=== PATIENT | female | born 1990 | race Caucasian/White ===

== ENCOUNTER 2021-10-20 17:15 | Emergency (ER) | payer BC, SELFPAY ==
--- NOTE | ~2021-10-20 | XR_ITS ---
EXAMINATION: XR chest 2V 10/20/2021 18:03 INDICATION: Shortness of breath for 3 days PROCEDURE: 2 view chest COMPARISON: No prior studies for comparison. FINDINGS: The lungs are clear. The cardiomediastinal silhouette is within normal limits. There are no pleural effusions. There is no pneumothorax suspected. IMPRESSION: 1: NO ACUTE CARDIOPULMONARY DISEASE. Reviewed, dictated and finalized at location A.
[2021-10-20 17:25] VITALS: BP 148/83; PULSE 78; RESP 20; TEMP 36.8; O2SAT 100
--- NOTE | 2021-10-20 17:27 | ED.URI ---
HPI - URI/Sore Throat General Stated Complaint: Shortness of Breath Time Seen by Provider: 10/20/21 17:42 Source: patient and RN notes reviewed Mode of arrival: ambulatory Limitations: no limitations History of Present Illness HPI Narrative: 31-year-old female presents with concern for shortness of breath. She reports 3-day history of feeling of having to catch her breath after mild activity such as walking down the [place]. She reports occasionally feeling the feeling after resting. She denies any chest pain, nasal congestion, rhinorrhea, fever, cough. She reports she does not take control, she has not taken control for more than a year. She denies any recent hospitalizations or airplane trips. Reports approximately 3 weeks ago she had a 4-hour car ride. MD elicited complaint: cough and other (Shortness of breath) Related Data Home Medications Medication Instructions Recorded Confirmed Vitamin 1 tablet PO DAILY 10/20/21 10/20/21 Allergies Allergy/AdvReac Type Severity Reaction Status Date / Time tree nuts Allergy Unknown unknown Uncoded 10/20/21 17:38 tree pollen Allergy Unknown unknown Uncoded 10/20/21 17:38 Review of Systems Review of Systems: CONSTITUTIONAL: Denies malaise, chills, sweats, or fever. EYES: Denies visual changes, redness, or discharge. ENT: Denies rhinorrhea, congestion, sinus pain, otalgia and sore throat. CARDIOVASCULAR: Denies chest pain, palpitations, or edema. RESPIRATORY: Denies cough. Reports dyspnea. GASTROINTESTINAL: Denies abdominal pain, nausea, vomiting, diarrhea SKIN: Denies rash or itching. MUSCULOSKELETAL: Denies myalgia. NEUROLOGIC: Denies headache. All systems reviewed & are unremarkable except as noted in HPI and below PMFSH Past Medical History Medical History Leaky heart valve Surgical History Surgical History [place] teeth extracted 2007 Family History Family History Father Diabetes mellitus Hypertension Mother Hypertension Grandparent Diabetes mellitus Hypertension Anxiety and depression Heart disease Grandparent Pancreatic cancer Social History Social History (Reviewed 07/26/21 @ 14:24 by Love Stanford [facility] Smoking status: Never smoker Alcohol intake: current Drinks per week: 4 Substance use: never Agree to blood products: Yes Comments At time of signature, agree with nursing past medical, surgical, social and family history. There is no relevant family history pertinent to the presenting complaint Exam Narrative: GENERAL: Well-appearing, well-nourished, and in no acute distress. HEAD: Normocephalic, atraumatic. EYES: PERRLA, sclera clear ENT: Nares clear. Mucous membranes moist. NECK: Supple. CHEST: No respiratory distress. Clear to auscultation. No bony deformities, no asymmetry. Speaks in full sentences. HEART: Regular rate and rhythm. No murmur heard. SKIN: Warm, dry, no visible rash. NEURO: Alert and oriented x3. PSYCH: Normal mood and affect Course Course Emergency Course: Discussed with patient limited diagnostic capability at [facility], discussed possible transfer to emergency department for further evaluation of patient's expressed concern of pulmonary embolism Patient agrees to proceed directly to the emergency department. Portions of this record may have been created with voice recognition software Level of Care: [facility] Visit Vital Signs Vital signs: Reviewed. Transfer Transfered to: [place] Transportation: Other Transfer rationale: Shortness of breath Accepting physician: Yessica Transfer comments: Patient stable for transfer via private vehicle MDM - URI/Sore Throat MDM Narrative Medical decision making narrative: Exam findings EKG, and imaging show no acute concerns or
--- NOTE | 2021-10-20 17:54 | ECG_ITS ---
Measurements Intervals [place] Rate: 71 P: 67 [place]: 152 QRS: 21 QRSD: 82 T: 44 QT: 388 QTc: 423 Interpretive Statements SINUS RHYTHM LOW QRS VOLTAGE IN PRECORDIAL LEADS BORDERLINE ECG Electronically Signed On 10-21-2021 6:03:09 CDT by Maxwell Cowan D.O.
[2021-10-20 18:30] VITALS: BP 140/90; PULSE 66; RESP 18; O2SAT 98
== END 2021-10-20 18:30 | disposition short-term general hospital (02) ==
PROVIDERS: Emergency Provider Nurse Practitioner
DX: R06.02 Shortness of breath (principal); Z20.822 Contact with and (suspected) exposure to COVID-19
CPT/HCPCS: 71046; 87426; 87804; 93005; 99213; C9803; G0463

== ENCOUNTER 2021-10-20 19:34 | Emergency (ER) | payer BC, SELFPAY ==
--- NOTE | ~2021-10-20 | XR_ITS ---
EXAMINATION: XR chest 2V 10/20/2021 20:14 INDICATION: Extreme shortness of breath. Chest tightness. PROCEDURE: 2 view chest COMPARISON: 10/20/2021 FINDINGS: The lungs are clear. The cardiomediastinal silhouette is within normal limits. There are no pleural effusions. There is no pneumothorax suspected. IMPRESSION: 1: NO ACUTE CARDIOPULMONARY DISEASE. Reviewed, dictated and finalized at location A.
[2021-10-20 19:36] VITALS: BP 153/106; PULSE 68; RESP 20; TEMP 36.2; O2SAT 100
--- NOTE | 2021-10-20 19:38 | ECG_ITS ---
Measurements Intervals [place] Rate: 65 P: 67 [place]: 153 QRS: 18 QRSD: 86 T: 50 QT: 399 QTc: 416 Interpretive Statements SINUS RHYTHM NORMAL ECG Electronically Signed On 10-21-2021 6:15:28 CDT by Maxwell Cowan D.O.
[2021-10-20 20:05] LABS: Basophils Absolute Auto 0.1 K/mm3 (0.0-0.1); Eosinophils Absolute Auto 0.1 K/mm3 (0-0.3); Eosinophils Percent Auto 1.5 % (0-4.4); Hemoglobin 15.7 g/dL (12.0-15.0); Immature Granulocyte Absolute 0.01 K/mm3 (0.00-0.031); Immature Granulocyte Percent A 0.1 % (0-0.5); Lymphocytes Absolute Auto 3.73 K/mm3 (0.9-3.2); Lymphocytes Percent Auto 44.5 % (18.3-44.2); Mean Corpuscular HGB Conc 33.4 g/dl (32-36); Mean Corpuscular Hemoglobin 29.8 pg (26-34); Mean Corpuscular Volume 89.4 fl (80-100); Mean Platelet Volume 9.5 fl (7.4-10.4); Monocytes Absolute Auto 0.5 K/mm3 (0.1-0.6); Monocytes Percent Auto 5.8 % (2.6-8.5); Neutrophils Percent Auto 47.1 % (45.5-73.1); Platelet Count Result 278 k/mm3 (150-375); Red Blood Count 5.26 M/mm3 (4.2-5.4); Red Cell Distribution Width 12.8 % (11.5-14.5); White Blood Count 8.4 K/mm3 (4.5-10.0)
[2021-10-20 20:14] LABS: Alanine Aminotransferase 22 U/L (6-35); Albumin Level 5.1 g/dL (3.5-5.1); Alkaline Phosphatase 80 U/L (38-126); Anion Gap 8 mmol/L (8-16); Aspartate Amino Transferase 33 U/L (14-36); Bilirubin,Total 0.4 mg/dL (0.2-1.3); Blood Urea Nitrogen 13 mg/dL (7-17); Calcium 9.3 mg/dL (8.4-10.2); Carbon Dioxide 27 mmol/L (22-30); Chloride 104 mmol/L (98-107); Estimated CRCL calculation 81 ml/min; Estimated Glomerular Filt Rate > 60; Glucose 100 mg/dL (65-110); Potassium 3.9 mmol/L (3.4-5.0); Sodium 139 mmol/L (137-145)
[2021-10-20 20:26] VITALS: O2SAT 98
--- NOTE | 2021-10-20 20:36 | ED.SOB ---
HPI - SOB/Dyspnea General Chief Complaint: Shortness of Breath/Dyspnea Stated Complaint: sob Time Seen by Provider: 10/20/21 20:21 History of Present Illness HPI Narrative: Patient is a 31-year-old female complaining of shortness of breath, worse when exertion and speaking, started 3 to 4 days ago. Patient denies any cough, chest congestion, chest pain, abdominal pain, nausea, vomiting, diaphoresis, fever or chills. Related Data Home Medications Medication Instructions Recorded Confirmed Vitamin 1 tablet PO DAILY 10/20/21 10/20/21 Allergies Allergy/AdvReac Type Severity Reaction Status Date / Time tree nuts Allergy Unknown unknown Uncoded 10/20/21 17:38 tree pollen Allergy Unknown unknown Uncoded 10/20/21 17:38 Review of Systems Review of Systems: All systems reviewed & are unremarkable except as noted in HPI and below Constitutional: Constitutional: Denies body ache(s), Denies chills, Denies excessive sweating, Denies fatigue, Denies fever(s), Denies headache(s), Denies lethargy, Denies malaise, Denies weakness and Denies weight loss Eyes: Eyes: Denies blurry vision, Denies change in vision and Denies loss of vision ENT: Denies dizziness, Denies ear discharge, Denies headache(s), Denies lip swelling, Denies epistaxis, Denies nasal congestion, Denies neck pain, Denies throat swelling and Denies tongue swelling Cardiovascular: Cardiovascular: Denies chest pain, Denies chest pain at rest, Denies chest pain with activity, Denies diaphoresis, Denies rapid heart rate, Denies edema, Denies irregular heart rhythm, Denies lightheadedness and Denies palpitations Respiratory: Respiratory: Denies chest congestion, Denies cough and Denies hemoptysis Gastrointestinal: Gastrointestinal: Denies abdominal pain, Denies melena, Denies hematochezia, Denies diarrhea, Denies nausea, Denies vomiting and Denies hematemesis Musculoskeletal: Musculoskeletal: Denies abnormal gait, Denies deformity, Denies joint swelling, Denies limited range of motion, Denies neck pain and Denies numbness Neurologic: Denies Abnormal speech present, Denies abnormal gait, Denies confusion, Denies dizziness, Denies headache(s), Denies focal weakness, Denies loss of vision, Denies numbness, Denies Other visual disturbances, Denies Sensory deficit (Neuro) and Denies weakness Psychiatric: Psychiatric: Denies confusion, Denies depression, Denies auditory hallucinations, Denies homicidal ideation and Denies suicidal ideation Endocrine: Endocrine: Denies cold intolerance, Denies excessive sweating, Denies fatigue, Denies heat intolerance and Denies palpitations Hematologic/Lymphatic: Hematologic/Lymphatic: Denies easy bleeding and Denies easy bruising Allergic/Immunologic: Allergic/Immunologic: Denies lip swelling, Denies throat swelling and Denies tongue swelling PMFSH Past Medical History Medical History Leaky heart valve Surgical History Surgical History [place] teeth extracted 2007 Family History Family History Father Diabetes mellitus Hypertension Mother Hypertension Grandparent Diabetes mellitus Hypertension Anxiety and depression Heart disease Grandparent Pancreatic cancer Social History Social History Smoking status: Never smoker Alcohol intake: current Drinks per week: 4 Substance use: never Agree to blood products: Yes Exam Const: General: cooperative, healthy appearing, comfortable, no acute distress, well developed, alert and awake; No confusion Orientation/consciousness: oriented to person, oriented to place, oriented to time, patient oriented x3 and No confusion Limitations: no limitations HENMT: Head: normal to inspection, normocephalic and atraumatic Ears: hearing grossly normal bilatera
[2021-10-20 20:43] LABS: D Dimer < 0.27 ug/mL (<0.48)
[2021-10-20 22:00] VITALS: BP 123/86; PULSE 77; RESP 18; O2SAT 98
== END 2021-10-20 22:01 | disposition home or self-care (01) ==
PROVIDERS: Emergency Medicine; Emergency Provider Emergency Medicine; PCP Family Medicine
DX: R06.02 Shortness of breath (principal); I38 Endocarditis, valve unspecified
CPT/HCPCS: 36415; 71046; 80053; 85025; 85380; 87426; 87804; 93005; 99283; C9803

== ENCOUNTER 2023-03-07 05:58 | Inpatient (IN) | payer BC, SELFPAY ==
[2023-03-07] VITALS (157 sets, daily range): BP systolic 98–177; BP diastolic 57–160; PULSE 62–225; RESP 18; TEMP 36.1–36.8; O2SAT 93–100; BMI 33.0
--- NOTE | 2023-03-07 06:26 | LDADM ---
This patient, Kamlesh Coley, was admitted to Labor/Delivery/Recovery 103 on 03/07/23 at 05:58. Plans for labor, pain management and were discussed with patient. Patient/family oriented to hospital policies and general routines including ID bracelet, bed and alarms, visiting hours, pain management, procedures, bathroom and other care routines, personal items, smoking policy, room service/diet and guest tray routines, infant security routines, and visiting hours. Patient/Family are encouraged to report perceived risks to care and to ask questions if they do not understand what they are told or what they should do. See OBIX for further documentation.
[2023-03-07 06:48] LABS: Glucose Point of Care 106 mg/dl (65-105)
[2023-03-07 06:50] LABS: Basophils Percent Auto 0.4 % (0.2-1.2); Eosinophils Absolute Auto 0.1 K/mm3 (0-0.3); Eosinophils Percent Auto 1.1 % (0-4.4); Hematocrit 35.6 % (37.0-47.0); Hemoglobin 11.9 g/dL (12.0-15.0); Immature Granulocyte Absolute 0.03 K/mm3 (0.00-0.031); Immature Granulocyte Percent A 0.4 % (0-0.5); Lymphocytes Absolute Auto 2.05 K/mm3 (0.9-3.2); Lymphocytes Percent Auto 24.1 % (18.3-44.2); Mean Corpuscular HGB Conc 33.4 g/dl (32-36); Mean Corpuscular Hemoglobin 29.9 pg (26-34); Mean Corpuscular Volume 89.4 fl (80-100); Mean Platelet Volume 10.1 fl (7.4-10.4); Monocytes Absolute Auto 0.6 K/mm3 (0.1-0.6); Monocytes Percent Auto 6.5 % (2.6-8.5); Neutrophils Absolute Auto 5.8 K/mm3 (1.3-6.7); Neutrophils Percent Auto 67.5 % (45.5-73.1); Platelet Count Result 206 k/mm3 (150-375); Red Blood Count 3.98 M/mm3 (4.2-5.4); Red Cell Distribution Width 13.5 % (11.5-14.5); White Blood Count 8.5 K/mm3 (4.5-10.0)
--- NOTE | 2023-03-07 07:37 | WPDOBADMIT ---
Obstetrics - Admit Note Admission Note: record reviewed. No pertinent additions to the history and/or any subsequent changes in the physical findings that are not consistent with the expected course of the were found. Admission for gestational HTN, GDMA-2, IOL, cervix /-1 plan cytotec Additions to the history and/or subsequent changes in the physical findings follow. None.
[2023-03-07] MEDS: miSOPROStol 25 MCG TABLET PO (07:49)
[2023-03-07 08:03] LABS: Total Protein Urine Random 20 mg/dL
[2023-03-07 08:08] LABS: Alanine Aminotransferase 18 U/L (6-35); Albumin Level 3.4 g/dL (3.5-5.1); Alkaline Phosphatase 208 U/L (38-126); Amorphous Sediment Urine Present; Anion Gap 7 mmol/L (8-16); Appearance Urine Cloudy (Clear); Aspartate Amino Transferase 27 U/L (14-36); Bacteria Urine None Seen /hpf; Bilirubin Urine Negative (Negative); Bilirubin,Total 0.4 mg/dL (0.2-1.3); Blood Urea Nitrogen 10 mg/dL (7-17); Blood Urine 1+ (Negative); Calcium 9.4 mg/dL (8.4-10.2); Carbon Dioxide 19 mmol/L (22-30); Chloride 108 mmol/L (98-107); Color Urine Yellow (Yellow); Estimated CRCL calculation 152 ml/min; Estimated Glomerular Filt Rate > 60; Glucose 105 mg/dL (65-110); Glucose Urine UA Negative (Negative); Ketones Urine 2+ mg/dL (Negative); Leukocyte Esterase Ur 1+ LEU/UL (NEGATIVE); Nitrate Urine Negative (Negative); Non Pathogenic Casts 0-2; Potassium 3.3 mmol/L (3.4-5.0); Protein Urine Negative (Negative); RBC Urine 0-2 /hpf (0-2); Sodium 134 mmol/L (137-145); Specific Grav Ur 1.011 (1.001-1.035); Squamous Epithelial Cell Urine None seen /hpf (Few); Uric Acid 4.2 mg/dL (2.5-7.5); Urobilinogen Urine 0.2 mg/dL (<2.0); WBC Urine 0-5 /hpf (0-3)
[2023-03-07 08:09] LABS: Add Urine Microscopic? YES
[2023-03-07 10:43] LABS: Rapid Plasma Reagin Non-Reactive (NonReactive)
[2023-03-07 10:45] LABS: Glucose Point of Care 134 mg/dl (65-105)
[2023-03-07] MEDS: miSOPROStol 25 MCG TABLET 50 MCG PO (12:18)
[2023-03-07 14:46] LABS: Glucose Point of Care 106 mg/dl (65-105)
[2023-03-07] MEDS: LACTATED RINGERS 1,000 ML 125 ML IV CONT ×2 (16:06→18:00)
[2023-03-07] MEDS: OXYTOCIN 30 UNITS/NS 500 ML 30 UNITS/500 ML BAG 6 UNITS IV CONT (16:07)
--- NOTE | 2023-03-07 16:21 | PM.OBPNLAB ---
Pain Control Date/time seen: 03/07/23 16:21 SVE 1-2 cm/80/-2 AROM small amount of clear, odorless fluid, anticipate vaginal delivery
[2023-03-07] MEDS: fentaNYL CITRATE INJ (*CRX) 100 MCG/2 ML VIAL 50 MCG IV PUSH (17:35)
--- NOTE | 2023-03-07 17:52 | WPDANESEPPF ---
Anes - Initial Pre Proc Eval Procedure: labor epidural Date/Time: 03/07/23 17:52 Surgeon: Kanchan Sweet MD Pre Op Diagnosis: labor pain Pre Op Diagnosis: iol Patient Data Age: 32 Gender: F Height: 1.65 m Weight: 90 kg Last Vital Signs Temp 36.2 C L 03/07/23 15:00 Pulse 103 H 03/07/23 17:50 Resp 18 03/07/23 08:00 BP 126/65 03/07/23 17:50 Pulse Ox 98 03/07/23 17:48 O2 Del Method Room Air 03/07/23 06:25 Allergies Allergy/AdvReac Type Severity Reaction Status Date / Time tree nuts Allergy Unknown unknown Uncoded 02/27/23 12:24 tree pollen Allergy Unknown unknown Uncoded 02/27/23 12:24 Home Medications Medication Instructions Recorded Confirmed Type Vitamin 1 tablet PO DAILY 10/20/21 02/27/23 History albuterol sulfate 90 mcg/actuation 2 puff inhalation QID PRN 10/20/21 02/27/23 Rx aerosol inhaler shortness of breath or wheezing #18 grams aspirin 81 mg chewable tablet 81 mg PO DAILY 02/27/23 02/27/23 History cetirizine 10 mg PO DAILY 02/27/23 02/27/23 History folic acid 400 mcg tablet 0.4 mg PO DAILY 02/27/23 02/27/23 History insulin NPH isoph U-100 human 100 30 unit subcut HS 02/27/23 02/27/23 History unit/mL subcutaneous cartridge Laboratory Tests 03/07/23 03/07/23 03/07/23 06:14 06:15 06:39 WBC 8.5 K/mm3 (4.5-10.0) RBC 3.98 L M/mm3 (4.2-5.4) Hgb 11.9 L D g/dL (12.0-15.0) Hct 35.6 L % (37.0-47.0) MCV 89.4 fl (80-100) MCH 29.9 pg (26-34) MCHC 33.4 g/dl (32-36) RDW 13.5 % (11.5-14.5) Plt Count 206 k/mm3 (150-375) MPV 10.1 fl (7.4-10.4) Immature Gran % (Auto) 0.4 % (0-0.5) Neut % (Auto) 67.5 % (45.5-73.1) Lymph % (Auto) 24.1 % (18.3-44.2) Mower % (Auto) 6.5 % (2.6-8.5) Eos % (Auto) 1.1 % (0-4.4) Baso % (Auto) 0.4 % (0.2-1.2) Lymph # (Auto) 2.05 K/mm3 (0.9-3.2) Mower # (Auto) 0.6 K/mm3 (0.1-0.6) Eos # (Auto) 0.1 K/mm3 (0-0.3) Baso # (Auto) 0.0 K/mm3 (0.0-0.1) Abs Immat Gran (auto) 0.03 K/mm3 (0.00-0.031) Absolute Neuts (auto) 5.8 K/mm3 (1.3-6.7) Absolute Nucleated RBC 0.0 K/mm3 (0.0-0.012) Nucleated RBC % 0.0 % (0.0-0.2) Sodium Potassium Chloride Carbon Dioxide Anion Gap BUN Creatinine Estim Creat Clear Calc Estimated GFR Glucose POC Capillary Glucose 106 H mg/dl (65-105) Uric Acid Calcium Total Bilirubin AST ALT Alkaline Phosphatase Total Protein Albumin Urine Color Urine Appearance Urine pH Ur Specific [place] Urine Protein Urine Glucose (UA) Urine Ketones Ur Blood (Man) Urine Nitrate Urine Bilirubin Urine Urobilinogen Ur Leukocyte Esterase Urine RBC Urine WBC Ur Squamous Epith Cells Amorphous Sediment Urine Bacteria Urine Casts U Random Total Protein Urine Creatinine Protein/Creat Ratio 2 RPR Non-reactive (NonReactive) Blood Type A Positive Antibody Screen Negative 03/07/23 03/07/23 03/07/23 07:44 10:42 14:43 WBC RBC Hgb Hct MCV MCH MCHC RDW Plt Count MPV Immature Gran % (Auto) Neut % (Auto) Lymph % (Auto) Mower % (Auto) Eos % (Auto) Baso % (Auto) Lymp
[2023-03-07 18:32] LABS: Glucose Point of Care 85 mg/dl (65-105)
[2023-03-07 22:24] LABS: Glucose Point of Care 82 mg/dl (65-105)
[2023-03-08] VITALS (143 sets, daily range): BP systolic 101–199; BP diastolic 48–177; PULSE 72–163; RESP 16; TEMP 36.6–37.1; O2SAT 90–100
[2023-03-08 01:36] LABS: Glucose Point of Care 92 mg/dl (65-105)
[2023-03-08] MEDS: LACTATED RINGERS 1,000 ML 125 ML IV CONT (01:44)
[2023-03-08 02:18] LABS: Glucose Point of Care 102 mg/dl (65-105)
--- NOTE | 2023-03-08 04:56 | P.PCNOB_ITS ---
OB - Delivery Note Procedure Delivery date: 03/08/23 Procedure: Events: Gestational Diabetes (A-2) and Preeclampsia w/o severe features Induction method: AROM, Per Misoprostol Protocol and Per Pitocin Protocol Delivery monitor: External FHT and External Uterine Route of delivery: Episiotomy description: None Laceration Description: Perineal - 2nd Degree Delivery repair: vicryl Specimen: Yes Quantitative Blood Loss (ml): 800 Anesthesia type: Epidural Disposition: Floor [place] Baby Date of : 03/08/23 Time of : 04:27 Weeks of gestation at delivery: 38 Infant gender: Male presentation: vertex position: Left Occiput Anterior Placenta delivery description: Spontaneous Cord Vessel Description: 3 Vessels, Nuchal Cord (x1), Loose, Reduced, Clamped/Cut, Delayed Cord Clamping and Around Body (x1) score one minute: 8 score five minutes: 9 Narrative: mother and baby skin to skin, after delivery of placenta uterus did not firm with fundal massage, pitocin, then rectal cytotec with no resolution, STACEY placed and hemostasis achieved. stable condition
[2023-03-08] MEDS: LIDOCAINE HCL 1% LOCAL INJ 20 ML VIAL (06:18)
[2023-03-08] MEDS: miSOPROStol 200 MCG TABLET 1000 MCG (06:18)
[2023-03-08] MEDS: fentaNYL CITRATE INJ (*CRX) 100 MCG/2 ML VIAL IV PUSH (06:19)
--- NOTE | 2023-03-08 06:22 | PC.NURSE ---
Talked to Ermias Bardales at this time and she stated to give this patient 2g of Ancef
[2023-03-08] MEDS: BENZOCAINE 20% AER SPR (*SP) 56 GM CAN 1 SPRAY TOPICAL (06:54)
[2023-03-08] MEDS: IBUPROFEN 600 MG TABLET PO ×3 (06:54→18:22)
[2023-03-08] MEDS: WITCH HAZEL 40 PADS 1 PAD TOPICAL (06:54)
[2023-03-08] MEDS: ceFAZolin 2 GM/D5W 50 ML 2 GM/50 ML BAG IVPB (06:55)
--- NOTE | 2023-03-08 09:01 | OBPPTRN ---
0808-Patient transferred to post room #281 via wheelchair. Support person present. Oriented to unit, room, information board, rooming in, admission packet and security measures. Patient verbalizes understanding.
[2023-03-08] MEDS: DOCUSATE SODIUM 100 MG CAPSULE PO (12:18)
[2023-03-08] MEDS: MULTIVIT/MIN/PREN/FOL AC/IRON TABLET 1 TAB PO (12:21)
--- NOTE | 2023-03-08 13:50 | PC.NURSE ---
1245- present to D/C Sue. RN assisted; pt tolerated well.
[2023-03-08 13:55] LABS: Hematocrit 31.2 % (37.0-47.0); Hemoglobin 10.3 g/dL (12.0-15.0); Mean Corpuscular Hemoglobin 29.9 pg (26-34); Mean Corpuscular Volume 90.7 fl (80-100); Mean Platelet Volume 9.7 fl (7.4-10.4); Platelet Count Result 184 k/mm3 (150-375); Red Blood Count 3.44 M/mm3 (4.2-5.4); Red Cell Distribution Width 13.8 % (11.5-14.5)
--- NOTE | 2023-03-08 15:56 | PC.NURSE ---
[id number] Introductions were made, then consulted with patient to assess needs related to . Mother led the conversation with her?plans to feed?her infant and the?experience so far. Mother works well with her infant with encouragement and education. Encouraged understanding of the benefits of skin to skin (demonstrating unwrapping and placing upright on her chest), stimulating with massage touch, changing positions to encourage wakefulness, how to watch for early feeding cues, responsive feeding, feeding on demand (aiming for 8-12 times in 24 hours, about every 2-3 hours), milk production, hand expression, building/maintaining a milk supply, duration of feeding, signs of adequate intake/output and how to record on the feeding sheet. Infant show no feeding cues and cries when stimulated. Reviewed good handwashing when or touching the breast/nipples to prevent infection. RN demonstrated hand expression and mother practiced the technique. tends to clamp his jaw, hold the tongue in the middle of his mouth and the tongue is tight at the lower frenulum. With gentle facial and jaw massaging was able to be syringe fed the 1ml of EBM in small amounts when he would suck on gloved finger. Resources used to facilitate learning were used with the tool/mom and baby guide. Mother voiced understanding of skin to skin, stimulating with massage touch, responsive feedings, hand expressed colostrum, talking to infant to encourage if it has been 2 -2.5 hours since the start of the last , to call if infant does not latch, or if there is discomfort with . Infant was placed [id number]. Resources provided for inpatient with name written on the communication board. Mother voiced understanding of information, demonstrated learning and will call if there is a request for assistance. Reported to primary RN. 1550- Purposefully rounded to assess needs. There's visitors at this time. Mother will call when she is ready to work with protecting the milk supply.
--- NOTE | 2023-03-08 17:32 | PC.NURSE ---
[id number] Breast pump provided due to not interested in so far. Instructions given on cleaning, care, usage, that there should be no pain, pumping schedule for milk production, collection, and storage of human milk. Parents are encouraged to record pumping schedule on the Patient was assessed for correct placement, flange size (24mm was used and it is too big), to pump for comfort and nipple stretching/stimulation for adequate milk production every 3 hours (8 times in 24 hours) 1-2 times at night. The EBM was collected up into a spoon and fed to infant by RN. An attempt was made to see if infant would latch so mother positioned her infant with cross cradle with ear, shoulder and hip in alignment. Mother was encouraged to wait for a big, wide, open gape then infant was brought to the breast and effectively breastfed for 10 min demonstrating for the parents what a swallow looks and sounds like with the rocking jaw motion. Discussed with mother the options to protect her milk supply with offering breast often, hand expression and pumping if necessary. There is no need to pump if is and meeting requirements. Reviewed infant behaviors the first 24 hours. Mother voiced understanding of the education shared along with mom and baby guide for additional resource information. Reported to the Primary RN.
[2023-03-09] MEDS: IBUPROFEN 600 MG TABLET PO ×3 (04:20→19:01)
[2023-03-09 05:25] LABS: Hematocrit 27.4 % (37.0-47.0); Hemoglobin 8.9 g/dL (12.0-15.0)
[2023-03-09 07:30] VITALS: BP 122/73; PULSE 80; RESP 18; TEMP 36.8; O2SAT 100
--- NOTE | 2023-03-09 07:37 | PM.OBPNVD ---
OB - PN: Subj Subjective Date/time seen: 03/08/23 12:55 Interval history: At bedside for Narrative: At bedside for removal of Sue device. Bleeding minimal, 100cc in canister with no further drainage. Fundus firm. Suction removed and cervical balloon deflated. After 30 min, no bleeding noted. Device removed intact, fundus remains firm. Will monitor bleeding closely. OB - PN: Obj Data Labs 03/09/23 04:18 03/07/23 07:44 Labs: Laboratory Results - last 24 hr 03/08/23 03/09/23 13:42 04:18 WBC 14.0 H RBC 3.44 L Hgb 10.3 L 8.9 L Hct 31.2 L 27.4 L MCV 90.7 MCH 29.9 MCHC 33.0 RDW 13.8 Plt Count 184 MPV 9.7 OB - PN A/P Time Spent With Patient Time: Total time spent is greater than 50% in coordination of care (as documented) at patient's floor/unit and/or counseling patient: Exam : External Female Exam: normal external appearance
--- NOTE | 2023-03-09 07:37 | PM.OBPNVD ---
OB - PN: Subj Subjective Date/time seen: 03/09/23 07:37 Interval history: pp day 1 plan venofer pt doing well working on blood pressures normotensive OB - PN: Obj Data Labs 03/09/23 04:18 03/07/23 07:44 Labs: Laboratory Results - last 24 hr 03/08/23 03/09/23 13:42 04:18 WBC 14.0 H RBC 3.44 L Hgb 10.3 L 8.9 L Hct 31.2 L 27.4 L MCV 90.7 MCH 29.9 MCHC 33.0 RDW 13.8 Plt Count 184 MPV 9.7 OB - PN A/P Plan day: 1 Plan: routine care Time Spent With Patient Time: Total time spent is greater than 50% in coordination of care (as documented) at patient's floor/unit and/or counseling patient: Review of Systems Review of Systems: All systems reviewed & are unremarkable except as noted in HPI and below Exam Const: General: cooperative, healthy appearing and comfortable Chest: Chest palpation & inspection: normal inspection of the chest Resp: Effort & Inspection: normal respiratory effort GI: Other: soft Skin: General skin exam: normal color Extrem: Right lower extremity: edema Left lower extremity: edema
[2023-03-09 08:00] VITALS: PULSE 90; RESP 16; O2SAT 99
[2023-03-09] MEDS: POLYSACCHARIDE IRON COMPLEX 150 MG CAPSULE PO ×2 (09:17→15:47)
[2023-03-09] MEDS: MULTIVIT/MIN/PREN/FOL AC/IRON TABLET 1 TAB PO (09:17)
[2023-03-09] MEDS: DOCUSATE SODIUM 100 MG CAPSULE PO ×2 (09:17→15:47)
[2023-03-09] MEDS: IRON SUCROSE COMPLEX 400 MG in SODIUM CHLORIDE 0.9% IV 250 ML 108 MG IVPB (10:45)
[2023-03-09 12:05] VITALS: BP 132/70; PULSE 90; RESP 16; TEMP 36.4; O2SAT 99
--- NOTE | 2023-03-09 14:15 | WPDANLDPN2 ---
Anes-Prog Note L&D Date/Time: 03/09/23 14:15 Comfortable throughout: labor and delivery Neuraxial method: epidural Epidural/Spinal procedure site: clean & non-tender Neuro status: Neuro function grossly intact. Cardiovascular status: normal Respiratory status: normal Airway patency: baseline Mental status: baseline Post-Op hydration status: normal Vital Signs: Last Vital Signs Temp 36.4 C 03/09/23 12:05 Pulse 90 03/09/23 12:05 Resp 16 03/09/23 12:05 BP 132/70 03/09/23 12:05 Pulse Ox 99 03/09/23 12:05 O2 Del Method Room Air 03/09/23 08:00 Pain score (VAS): 06/06 I/O: Intake & Output 03/08/23 03/09/23 03/09/23 23:59 07:59 15:59 Intake Total 1430 Output Total 425 1000 1150 Balance -425 -1000 280 Post-procedural complaints: none Patient feedback: Patient satisfied with anesthetic care.
[2023-03-09 16:00] VITALS: BP 133/79; RESP 16; TEMP 36.9; O2SAT 98
--- NOTE | 2023-03-09 19:32 | PC.NURSE ---
[id number] A very pleased Mother verbalizes she is able to independently latch with appropriate positioning/alignment. She denies any nipple discomfort and is responsively . is currently meeting outcomes for weight, output, jaundice and feeding frequencies of 8-12 times in 24 hours. Mother declines any additional assistance/education at this time. Mother is encouraged to call for assistance if her doesn?t latch or there is discomfort with latching. Mother voiced understanding of information shared and the mom reminded of the mom/baby guide for an additional resource. Reported to the primary RN.
[2023-03-09 20:00] VITALS: BP 139/90; PULSE 76; RESP 16; TEMP 36.6; O2SAT 99
[2023-03-10] VITALS: BP 132/77
[2023-03-10 04:00] VITALS: BP 136/89
--- NOTE | 2023-03-10 05:53 | PM.OBPNVD ---
OB - PN: Subj Subjective Date/time seen: 03/10/23 05:53 Interval history: doing well baby wants d/c home vital signs stable OB - PN: Obj Data Labs 03/09/23 04:18 03/07/23 07:44 OB - PN A/P Plan day: 2 Plan: routine care and discharge home Time Spent With Patient Time: Total time spent is greater than 50% in coordination of care (as documented) at patient's floor/unit and/or counseling patient: Review of Systems Review of Systems: All systems reviewed & are unremarkable except as noted in HPI and below Exam Const: General: cooperative, healthy appearing and comfortable Chest: Chest palpation & inspection: normal inspection of the chest Resp: Effort & Inspection: normal respiratory effort Cardio: Rate: regular rate Rhythm: regular rhythm GI: Other: soft Neuro: General: patient oriented x3
--- NOTE | 2023-03-10 05:56 | P.DS_ITS ---
DS: Admitting Diagnosis Discharge Date 03/10/23 Admitting Diagnosis IOL, GDMA-2, preeclampsia DS: Discharge Diagnosis Discharge Diagnosis (1) Vaginal delivery: Code(s): O80 - Encounter for full-term uncomplicated delivery Status: Acute (2) Preeclampsia: Code(s): O14.90 - Unspecified pre-eclampsia, unspecified trimester Status: Acute OB - DS: Summary OB Procedures : None OB Procedures Intrapartum: Spontaneous Vag Delivery OB Procedures: : None Time Spent with Patient Time attestation: Total time spent providing and/or coordinating discharge services: DS: Data Data Completed and Pending Pending studies at discharge: Pending at discharge 03/08/23 04:35 Surgical [PTH] Routine Discharge Plan Discharge Attending physician on discharge: Kanchan Sweet Discharging Clinician: Lashae Bardales Patient Disposition: Home, Self-Care Activity: pelvic rest Diet: regular Patient Instructions: Antibiotic Form Stand Alone Forms: General Discharge Information Follow-up/Referrals: Lashae Bardales, CNM [Certified Nurse [employer] Service Consultant] - 4 Weeks Discharge Medications: New ibuprofen 600 mg Tablet 600 mg PO Q6H PRN (Reason: Cramping) Qty: 30 0RF Continued Vitamin 1 tablet PO DAILY albuterol sulfate 90 mcg/actuation HFA aerosol inhaler 2 puff INHALATION QID PRN (Reason: shortness of breath or wheezing) Qty: 18 0RF Discontinued Humulin N NPH U-100 Insulin 100 unit/mL Cartridge 30 unit SUBCUT HS folic acid 400 mcg Tablet 0.4 mg PO DAILY aspirin [Aspirin Child] 81 mg Tablet,Chewable 81 mg PO DAILY cetirizine 10 mg PO DAILY Date of admission: 03/07/23 05:58 Primary Care Provider: Baljit,Hector Neil Admitting Provider: Kanchan Sweet Attending physician on admission: Kanchan Sweet Condition: Stable
[2023-03-10] MEDS: IBUPROFEN 600 MG TABLET PO (06:40)
[2023-03-10 07:40] VITALS: BP 121/76; PULSE 89; RESP 18; TEMP 36.8
[2023-03-10] MEDS: DOCUSATE SODIUM 100 MG CAPSULE PO (11:33)
[2023-03-10] MEDS: POLYSACCHARIDE IRON COMPLEX 150 MG CAPSULE PO (11:33)
[2023-03-10] MEDS: MULTIVIT/MIN/PREN/FOL AC/IRON TABLET 1 TAB PO (11:33)
[2023-03-10] MEDS: WITCH HAZEL 40 PADS 1 PAD TOPICAL (11:33)
[2023-03-12 08:24] VITALS: BP 142/83; PULSE 80; RESP 18; TEMP 36.9; O2SAT 100
== END 2023-03-10 13:35 | disposition home or self-care (01) | DRG 807 ==
LOC: ANHLDR 06:01 → ANHOB2 03-08 08:10
PROVIDERS: Advanced Practice Midwife; Admitting Provider Obstetrics & Gynecology; PCP Family Medicine; Visit Provider Obstetrics & Gynecology
DX: O13.4 Gestational [pregnancy-induced] hypertension without significant proteinuria, complicating childbirth (principal); Z37.0 Single live birth; O14.04 Mild to moderate pre-eclampsia, complicating childbirth; O24.424 Gestational diabetes mellitus in childbirth, insulin controlled; O69.81X0 Labor and delivery complicated by cord around neck, without compression, not applicable or unspecified; O70.1 Second degree perineal laceration during delivery; Z3A.38 38 weeks gestation of pregnancy
CPT/HCPCS: 36415; 80053; 81001; 82570; 82948; 84156; 84550; 85014; 85018; 85025; 85027; 86592; 86850; 86900; 86901; 87086; 88307; A9270; J0690; J1756; J2590; J2795; J3010; J7050; J7120

== ENCOUNTER 2023-03-14 15:03 | Outpatient (CLI) | payer BC, SELFPAY ==
[2023-03-14 15:33] VITALS: BP 127/88; PULSE 64
[2023-03-14 15:45] VITALS: BP 137/80; PULSE 67
[2023-03-14 16:00] LABS: Basophils Percent Auto 0.4 % (0.2-1.2); Eosinophils Absolute Auto 0.1 K/mm3 (0-0.3); Eosinophils Percent Auto 1.1 % (0-4.4); Hematocrit 34.7 % (37.0-47.0); Hemoglobin 11.3 g/dL (12.0-15.0); Immature Granulocyte Absolute 0.09 K/mm3 (0.00-0.031); Immature Granulocyte Percent A 0.8 % (0-0.5); Lymphocytes Absolute Auto 2.45 K/mm3 (0.9-3.2); Lymphocytes Percent Auto 21.5 % (18.3-44.2); Mean Corpuscular HGB Conc 32.6 g/dl (32-36); Mean Corpuscular Hemoglobin 29.7 pg (26-34); Mean Corpuscular Volume 91.1 fl (80-100); Mean Platelet Volume 9.3 fl (7.4-10.4); Monocytes Absolute Auto 0.5 K/mm3 (0.1-0.6); Monocytes Percent Auto 4.4 % (2.6-8.5); Neutrophils Absolute Auto 8.2 K/mm3 (1.3-6.7); Neutrophils Percent Auto 71.8 % (45.5-73.1); Platelet Count Result 334 k/mm3 (150-375); Red Blood Count 3.81 M/mm3 (4.2-5.4); Red Cell Distribution Width 14.3 % (11.5-14.5); White Blood Count 11.4 K/mm3 (4.5-10.0)
[2023-03-14 16:12] LABS: Alanine Aminotransferase 28 U/L (6-35); Albumin Level 3.8 g/dL (3.5-5.1); Alkaline Phosphatase 138 U/L (38-126); Anion Gap 5 mmol/L (8-16); Aspartate Amino Transferase 26 U/L (14-36); Bilirubin,Total 0.3 mg/dL (0.2-1.3); Blood Urea Nitrogen 18 mg/dL (7-17); Calcium 9.3 mg/dL (8.4-10.2); Carbon Dioxide 25 mmol/L (22-30); Chloride 107 mmol/L (98-107); Estimated Glomerular Filt Rate > 60; Glucose 91 mg/dL (65-110); Sodium 137 mmol/L (137-145); Uric Acid 5.3 mg/dL (2.5-7.5)
[2023-03-14 16:15] VITALS: BP 123/82; PULSE 63
[2023-03-14 16:16] VITALS: BP 124/79; PULSE 68
[2023-03-14 16:30] VITALS: BP 132/79; PULSE 61
[2023-03-14 16:45] VITALS: BP 133/83; PULSE 58
== END 2023-03-14 16:50 | disposition home or self-care (01) ==
LOC: ANHOBOP 15:14 → ANHOBPP 15:14
PROVIDERS: PCP Family Medicine; Visit Provider Advanced Practice Midwife
DX: O13.9 Gestational [pregnancy-induced] hypertension without significant proteinuria, unspecified trimester (principal)
CPT/HCPCS: 36415; 80053; 84550; 85025; 99199